=== PATIENT | male | born 1965 | race Caucasian/White ===

== ENCOUNTER 2017-04-22 07:29 | Emergency (ER) | payer OTHER ==
[~2017-04-22] VITALS: Ht 165.1 cm; Wt 99.8 kg
[2017-04-22] MEDS ORDERED: ASPIR-LOW81 MG PO (07:40)
[2017-04-22] MEDS ORDERED: METFORMIN HCL500 MG PO (07:40)
[2017-04-22] MEDS ORDERED: LIPITOR20 MG PO (07:40)
== END 2017-04-22 08:11 | disposition home or self-care (01) ==
LOC: ED 07:29
PROC: 0HQFXZZ Repair Right Hand Skin, External Approach (ICD-10-PCS; principal; 2017-04-22)
DX: S61.011A Laceration without foreign body of right thumb without damage to nail, initial encounter (principal); W26.9XXA Contact with unspecified sharp object(s), initial encounter
CPT/HCPCS: 12001; 90471; 90715; 99282